=== PATIENT | male | born 1985 | race Caucasian/White ===

== ENCOUNTER 2019-03-26 17:53 | Emergency (ER) | payer SELFPAY ==
[~2019-03-26] VITALS: Ht 180.3 cm; Wt 122.9 kg
[2019-03-26 18:11] VITALS: Ht 180.3 cm; Wt 122.9 kg
[2019-03-26 18:49] LABS: PLATELET COUNT 166 x10^3mcL (130-400); RED CELL DISTRIBUTION WIDTH 13.4 % (11.5-14.5)
[2019-03-26 18:52] LABS: BASOPHIL % 0 % (0-2)
[2019-03-26 18:53] LABS: CALCIUM 8.6 mg/dL (8.5-10.1); CARBON DIOXIDE 25.3 mmol/L (21-32); CHLORIDE SERUM 99 mmol/L (98-107); CREATININE SERUM 0.8 mg/dL (0.7-1.3); GFR1 > 60 mL/min; GLUCOSE SERUM 315 mg/dL (74-106); POTASSIUM SERUM 3.9 mmol/L (3.5-5.1); SODIUM SERUM 133 mmol/L (136-145)
[2019-03-26 19:00] LABS: ALBUMIN 3.4 g/dL (3.4-5.0); ALKALINE PHOSPHATASE 115 U/L (46-116); ALT/SGPT 69 U/L (16-63); AST/SGOT 32 U/L (15-37); BILIRUBIN TOTAL 1.16 mg/dL (0.20-1.00); TOTAL PROTEIN, SERUM 8.2 g/dL (6.4-8.2)
[2019-03-26 21:39] LABS: microscopic required? YES; urine erythrocyte 2+ (NEGATIVE)
[2019-03-26 22:21] VITALS: BP 139/78
== END 2019-03-26 22:45 | disposition home or self-care (01) ==
LOC: ED 17:53
PROVIDERS: Emergency Medicine
DX: N39.0 Urinary tract infection, site not specified (principal); E11.9 Type 2 diabetes mellitus without complications; R53.1 Weakness
CPT/HCPCS: 36415; 87804; Q0162